=== PATIENT | male | born 1995 | race African-American/Black ===

== ENCOUNTER 2016-10-08 22:22 | Emergency (ER) | payer MEDICAID ==
[2016-10-08 22:54] LABS: APPEARANCE CLEAR (CLEAR); BILIRUBIN NEGATIVE (NEGATIVE); COLOR YELLOW (YELLOW); GLUCOSE NEGATIVE (NEGATIVE); KETONE NEGATIVE (NEGATIVE); LEUKOCYTE ESTERASE NEGATIVE (NEGATIVE); NITRITE NEGATIVE (NEGATIVE); PROTEIN NEGATIVE (NEGATIVE); SPECIFIC GRAVITY 1.025 (1.005-1.020); UROBILINOGEN NORMAL (NORMAL)
[2016-10-08 23:01] LABS: UDS - AMPHET NEGATIVE QUAL (NEGATIVE); UDS - BARB NEGATIVE QUAL (NEGATIVE); UDS - BENZO NEGATIVE QUAL (NEGATIVE); UDS - COCAINE NEGATIVE QUAL (NEGATIVE); UDS - METH NEGATIVE QUAL (NEGATIVE); UDS - OPIATE NEGATIVE QUAL (NEGATIVE); UDS - PCP NEGATIVE QUAL (NEGATIVE); UDS - THC NEGATIVE QUAL (NEGATIVE)
[2016-10-08 23:26] LABS: HEMATOCRIT 42.2 % (42.0-54.0); HEMOGLOBIN 14.4 g/dL (13.5-17.5); LYMPHOCYTES 17.9 % (15-50); MCH 29.3 pg (26.0-34.0); MCHC 34.1 g/dL (31.0-37.0); MCV 85.8 fL (80.0-100.0); MEAN PLATELET VOLUME 9.9 fL (7.4-10.4); NEUTROPHILS 72.8 % (40-80); PLATELET COUNT 240 10x3/uL (130-400); RBC 4.92 10x6/uL (4.20-6.10); RDW 14.1 % (11.5-14.5); WBC 14.3 10x3/uL (4.8-10.8)
[2016-10-08 23:38] LABS: ALBUMIN 4.2 g/dL (3.4-5.0); ANION GAP 12.8 mmol/L (8-16); BILIRUBIN - TOTAL 0.38 mg/dL (0.2-1.3); CALCIUM 9.5 mg/dL (8.5-10.1); CARBON DIOXIDE 29.5 mmol/L (21.0-32.0); CREATININE - SERUM 1.4 mg/dL (0.6-1.3); POTASSIUM - SERUM 4.3 mmol/L (3.5-5.1); PROTEIN - SERUM 8.9 g/dL (6.4-8.2)
== END 2016-10-09 02:35 | disposition home or self-care (01) ==
LOC: D.ER 22:22
PROVIDERS: Family Medicine
DX: F41.9 Anxiety disorder, unspecified (principal); F31.9 Bipolar disorder, unspecified

== ENCOUNTER 2018-04-15 08:39 | Day surgery (SDC) | payer MEDICAID ==
[~2018-04-15] VITALS: Ht 180.3 cm; Wt 160.1 kg
--- NOTE | ~2018-04-15 | HP ---
PATIENT: ANIRUDH MONTAGUE JR MEDICAL RECORD: [id number] ACCOUNT: [id number] LOCATION:[facility] : 95 ADMISSION DATE: 04/15/18 PCP: OG MILES MD HISTORY AND PHYSICAL EXAMINATION HISTORY: Anirudh is a 22 years old. He is having significant problems with obstructive adenotonsillar hypertrophy and recurrent pharyngitis. He is being admitted for tonsillectomy and adenoidectomy. PAST MEDICAL HISTORY: Includes sleep apnea. CURRENT MEDICATIONS: Seroquel, imipramine, Wellbutrin. ALLERGIES: GEODON. PHYSICAL EXAMINATION: GENERAL: He is healthy appearing. He is overweight. FACE: Normal and symmetric. No lesions. EYES: Sclerae and conjunctivae are normal. EARS: Canals and TMs are normal. NOSE: No masses, polyps, or drainage. ORAL CAVITY AND OROPHARYNX: 3+ to 4+ tonsils. Normal palate. NECK: No masses. No adenopathy. CHEST: Clear. CARDIOVASCULAR: Regular rate and rhythm. No murmur. EXTREMITIES: Normal. IMPRESSION: Obstructive adenotonsillar hypertrophy, sleep apnea, and chronic pharyngitis. PLAN: Tonsillectomy and adenoidectomy. TRANSINT:[id number] Voice Confirmation ID: [id number] DOCUMENT ID: [id number] ARASH MINA MD at 1730 CC: [id number] DICTATION DATE: 04/11/18 1019 LICENSE INSPECTOR: 04/11/[address] [facility] 04/15/18 [id number] [place] [address]
--- NOTE | ~2018-04-15 | OP ---
PATIENT NAME: GABE MONTAGUE JR MEDICAL RECORD: [id number] :95 LOCATION:[facility] ADMISSION DATE: SURGEON: ARASH SALMERON MD DATE OF OPERATION: 04/15/2018 PREOPERATIVE DIAGNOSES: Obstructive adenotonsillar hypertrophy and chronic pharyngitis. POSTOPERATIVE DIAGNOSES: Obstructive adenotonsillar hypertrophy and chronic pharyngitis. PROCEDURE: Tonsillectomy and adenoidectomy. SURGEON: Arash Salmeron MD ANESTHESIA: General orotracheal. BLOOD LOSS: Less than 5 cc. SPECIMENS: Right and left tonsil. COMPLICATIONS: None. DISPOSITION: Recovery stable. PROCEDURE NOTE: He was brought to the operating room and placed in supine position, sedated and intubated by anesthesia. The eyes were taped. Table was turned 90 degrees. Head drapes applied. He was positioned for tonsillectomy. Using a headlight, a Steven-Brian mouth gag was carefully inserted and elevated on a towel on his chest. The palate was examined and palpated. It was normal. A red rubber catheter was placed through the right side of the nose into the pharynx and grasped with tonsil clamp to retract the soft palate. Using a mirror, the nasopharynx was examined. Suction cautery on a setting of 35 was used to ablate and suction the adenoid pad with no significant bleeding. The red rubber catheter was let down and removed. The right tonsil was grasped at superior pole with a straight Allis clamp. Spatula tip cautery on a setting of 9 was used to dissect out the tonsil along its capsule, preserving the anterior and posterior tonsillar pillar. The left tonsil was removed in the same fashion and then both sides of the nose was irrigated with saline. The pharynx was suctioned. Tonsillar fossae were agitated. Suction cautery on a setting of 20 was used to control minimal oozing. With the field clean and dry, the Steven-Brian mouth gag was let down and removed. He was awakened, extubated, and transported to recovery in good condition. No complications. TRANSINT:[id number] Voice Confirmation ID: [id number] DOCUMENT ID: [id number] ARASH SALMERON MD at 1737 CC: [id number] DICTATION DATE: 04/15/18 1244 COAL HIKER: 04/15/18 1302 [facility] [place] 04/15/18 [facility] [address] [place] [address]
[2018-04-15] MEDS ORDERED: BUPROPION HCL100 MG (10:13)
[2018-04-15] MEDS ORDERED: SEROQUEL300 MG (10:13)
[2018-04-15] MEDS ORDERED: TOFRANIL50 MG PO (10:14)
[2018-04-15] MEDS ORDERED: INVEGA 3 MG ER T3 MG (10:15)
[2018-04-15 10:22] VITALS: Ht 180.3 cm; Wt 160.1 kg
[2018-04-15] MEDS ORDERED: HYDROCODON-ACET15 ML PO (12:59)
== END 2018-04-15 13:50 | disposition home or self-care (01) ==
LOC: D.OPS 08:39 → D.PAN 09:15 → D.OPS 09:30 → D.PAN 09:35 → D.OPS 09:45
DX: J35.01 Chronic tonsillitis (principal); J03.90 Acute tonsillitis, unspecified; J35.3 Hypertrophy of tonsils with hypertrophy of adenoids

== ENCOUNTER 2019-04-14 14:28 | Emergency (ER) | payer MEDICAID ==
[~2019-04-14] VITALS: Ht 180.3 cm; Wt 90.9 kg
[~2019-04-14 14:28] MED LIST: BUPROPION HCL100 MG; HYDROCODON-ACET15 ML PO; INVEGA 3 MG ER T3 MG; SEROQUEL300 MG; TOFRANIL50 MG PO
[2019-04-14 14:39] VITALS: Ht 180.3 cm; Wt 90.9 kg
[2019-04-14 17:43] LABS: BASOPHILS 0.2 % (0-2); EOSINOPHILS 2.2 % (0-7); HEMATOCRIT 40.6 % (42.0-54.0); HEMOGLOBIN 14.3 g/dL (13.5-17.5); IMMATURE GRANULOCYTES 0.4 % (0-5); LYMPHOCYTES 22.4 % (15-50); MCH 29.7 pg (26.0-34.0); MCHC 35.2 g/dL (31.0-37.0); MCV 84.2 fL (80.0-100.0); MEAN PLATELET VOLUME 10.1 fL (7.4-10.4); MONOCYTES 5.5 % (2-11); NEUTROPHILS 69.3 % (40-80); PLATELET COUNT 233 10x3/uL (130-400); RBC 4.82 10x6/uL (4.20-6.10); RDW 15.1 % (11.5-14.5); WBC 12.3 10x3/uL (4.8-10.8)
[2019-04-14 17:58] LABS: ALBUMIN 3.9 g/dL (3.4-5.0); ALKALINE PHOSPHATASE 127 U/L (46-116); ALT (SGPT) 90 U/L (10-68); BILIRUBIN - TOTAL 0.29 mg/dL (0.2-1.3); CALCIUM 8.9 mg/dL (8.5-10.1); CARBON DIOXIDE 29.7 mmol/L (21.0-32.0); CHLORIDE - SERUM 104 mmol/L (98-107); POTASSIUM - SERUM 4.5 mmol/L (3.5-5.1); PROTEIN - SERUM 8.8 g/dL (6.4-8.2); SODIUM 138 mmol/L (136-145); UREA NITROGEN 15 mg/dL (7-18); eGFR NON AFRICAN AMERICAN > 90 mL/min (90-120)
[2019-04-14 18:02] LABS: CALC OSMOLALITY 279 mosm/kg (275-300); GLUCOSE 145 mg/dL (74-106)
[2019-04-14 18:20] LABS: THYROID STIMULATING HORMONE 1.33 uIU/mL (0.36-3.74)
[2019-04-14] MEDS ORDERED: TOPROL XL25 MG PO (18:23)
[2019-04-14 19:00] VITALS: BP 128/84
== END 2019-04-14 19:00 | disposition home or self-care (01) ==
LOC: D.ER 14:28
PROVIDERS: Emergency Medicine
DX: R00.2 Palpitations (principal); R03.0 Elevated blood-pressure reading, without diagnosis of hypertension